=== PATIENT | male | born 1975 | race Hispanic/Latino ===

== ENCOUNTER 2017-12-25 11:52 | Outpatient (CLI) | payer OTHER ==
--- NOTE | 2017-12-25 14:50 | ULT ---
VENOUS DOPPLER ULTRASOUND OF THE RIGHT LOWER EXTREMITY: HISTORY: Right lower extremity edema, from a spider bite. TECHNIQUE: Nguyen-scale ultrasound with color-flow and spectral Doppler imaging of the deep venous system of the r ight lower extremity was performed. FINDINGS: There is good flow, compression, and augmentation noted in the right common femoral, femoral, deep fe moral, popliteal, posterior tibial, anterior tibial, and greater saphenous veins in the right lower e xtremity. Incidental note is made of prominent lymph nodes in the right groin, the largest measuring about 5 cm . IMPRESSION: No evidence of deep venous thrombosis in the right lower extremity. POS: [facility]BI
== END 2017-12-25 11:53 | disposition home or self-care (01) ==
LOC: NAV ULT 11:52
PROVIDERS: ATTEND Nurse Practitioner Adult Health
DX: T63.301A Toxic effect of unspecified spider venom, accidental (unintentional), initial encounter (principal)